=== PATIENT | male | born 1980 | race Caucasian/White ===

== ENCOUNTER → 2018-07-20 | Outpatient (CLI) | payer OTHER ==
--- NOTE | 2018-07-20 15:07 | RAD ---
DATE: 07/20/2018 EXAM: DIGITAL DIAGNOSTIC BILATERAL HISTORY: Right nipple tenderness since February COMPARISON: None This study was interpreted with the benefit of Computerized Aided Detection (CAD). Breast Density: SCATTERED The breast parenchyma shows scattered fibroglandular densities. Breast parenchyma level B. FINDINGS: Right sided gynecomastia is present. No mass or distortion. No suspicious calcification cluster. Benign-appearing left axillary lymph node is seen. IMPRESSION: Right gynecomastia. BI-RADS CATEGORY: 2 BENIGN FINDING(S) RECOMMENDED FOLLOW-UP: CLIN FOLLOW UP IMAGING CLINICALLY INDICATED PQRS compliance statement: Patient information was entered into a reminder system with a target due date as clinically needed for the next mammogram. Mammography is a sensitive method for finding small breast cancers, but it does not detect them all and is not a substitute for careful clinical examination. A negative mammogram does not negate a clinically suspicious finding and should not result in delay in biopsying a clinically suspicious abnormality. "Our facility is accredited by the [employer] Mammography Program."
== END | disposition home or self-care (01) ==
LOC: US 13:59
DX: R92.2 Inconclusive mammogram (principal); N62 Hypertrophy of breast
CPT/HCPCS: 77066